=== PATIENT | female | born 1970 | race Caucasian/White ===

== ENCOUNTER 2020-09-20 13:06 | Emergency (ER) | payer OTHER, SELFPAY ==
[~2020-09-20] VITALS: Ht 165.1 cm; Wt 79.4 kg
--- NOTE | 2020-09-20 13:16 | NUR ---
C/O FEVER, YOUSSEF 5/10 X 3 DAYS. HER SON EXPOSED TO SOMEONE WHO COFIRMED COVID +.
[2020-09-20 13:22] VITALS: BP 126/81
--- NOTE | 2020-09-20 13:40 | NUR ---
COVID SWAB COLLECTED, SENT TO LAB.
[2020-09-20 13:49] VITALS: BP 126/81
--- NOTE | 2020-09-20 13:49 | NUR ---
Patient discharged with v/s stable. Written and verbal after care instructions given and explained. Patient alert, oriented and verbalized understanding of instructions. Ambulatory with steady gait. All questions addressed prior to discharge. ID band removed. Patient advised to follow up with PMD. Rx of IBUPROFEN & ROBITUSSIN given. Patient educated on indication of medication including possible reaction and side effects. Opportunity to ask questions provided and answered.
== END 2020-09-20 13:49 | disposition home or self-care (01) ==
LOC: MED 13:06
DX: R51.9 Headache, unspecified (principal); R50.9 Fever, unspecified; R05 Cough; Z20.828 Contact with and (suspected) exposure to other viral communicable diseases
CPT/HCPCS: 99283; U0003